=== PATIENT | female | born 1945 | race Caucasian/White ===

== ENCOUNTER 2025-03-08 06:58 | Day surgery (SDC) | payer MEDICARE ==
[2025-03-08] MEDS ORDERED: Propofol 200 MG/20 ML SDV ONE (07:41)
[2025-03-08] MEDS: Lactated Ringers 1,000 ML IV SCH (08:18)
== END 2025-03-08 11:10 | disposition home or self-care (01) ==
LOC: JP.SDS 06:58
PROVIDERS: ATTEND Surgery
DX: R13.10 Dysphagia, unspecified (principal); K29.70 Gastritis, unspecified, without bleeding; Z88.7 Allergy status to serum and vaccine; Z79.82 Long term (current) use of aspirin; Z79.899 Other long term (current) drug therapy
CPT/HCPCS: 00731; 43239; 87081; J2704; J7120